=== PATIENT | male | born 1990 | race Caucasian/White ===

== ENCOUNTER 2021-07-21 18:55 | Inpatient (IN) | payer MEDICAID, SELFPAY ==
[2021-07-21 19:17] VITALS: BMI 24.2
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
[2021-07-21 20:37] VITALS: BP 117/78; PULSE 77; RESP 16; TEMP 36.8; O2SAT 98
[2021-07-21] MEDS: hyDROXYzine 25 mg Capsule 50 MG PO (20:53)
[2021-07-21] MEDS: trazodone 50 mg Tablet PO (20:54)
--- NOTE | 2021-07-21 20:56 | PC.NURSE ---
Patient is anxious since arriving on the unit and would like something to help him sleep. He spoke with charge nurse. Visteril and Trazadone were given
[2021-07-22 06:00] VITALS: BP 135/79; PULSE 66; RESP 16; TEMP 36.8; O2SAT 98
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
--- NOTE | 2021-07-22 10:47 | NPU.GN ---
[facility] Unit Group Topic: Messi [place] General Mood of Group: Uriel did not attend group this morning as he wanted to sleep.
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
[2021-07-22 15:53] VITALS: BP 135/79; PULSE 66; RESP 16; TEMP 36.8; O2SAT 98
--- NOTE | 2021-07-22 16:15 | PC.NURSE ---
DISCHARGE IT HAS BEEN DETERMINED THAT PT IS STABLE TO DISCHARGE AT THIS TIME. FATHER SPOKE WITH THIS NURSE TO CONFIRM THAT HE HAS NO CONCERNS OF PT BEING A DANGER TO SELF OR OTHERS, PT LIVES NEXT TO THEM AND THAT PT IS WELCOME TO COME HOME. [place] [facility]. ALL PERSONAL BELONGINGS RETURNED TO PT AT DISCHARGE.
== END 2021-07-22 16:15 | disposition home or self-care (01) | DRG 882 ==
PROVIDERS: Admitting Provider Psychiatry & Neurology Psychiatry; Visit Provider Psychiatry & Neurology Psychiatry
DX: F43.25 Adjustment disorder with mixed disturbance of emotions and conduct (principal); R45.851 Suicidal ideations; Z63.0 Problems in relationship with spouse or partner; F19.10 Other psychoactive substance abuse, uncomplicated
CPT/HCPCS: 97150; 97165